=== PATIENT | male | born 1985 | race Caucasian/White ===

== ENCOUNTER 2022-06-30 12:41 | Emergency (ER) | payer OTHER ==
[~2022-06-30] VITALS: Ht 170.2 cm; Wt 104.3 kg
[2022-06-30] MEDS ORDERED: AMOX-430 PO (14:03)
--- NOTE | 2022-06-30 14:24 | NUR ---
Gave pt RX and d/c instructions, pt verbalized understanding.
== END 2022-06-30 14:35 | disposition home or self-care (01) ==
LOC: ER 12:41
DX: K64.4 Residual hemorrhoidal skin tags (principal); K61.0 Anal abscess
CPT/HCPCS: A4663

== ENCOUNTER 2023-04-05 13:18 | Emergency (ER) | payer OTHER ==
[~2023-04-05] VITALS: Ht 167.6 cm; Wt 97.5 kg
[~2023-04-05 13:18] MED LIST: AMOX-430 PO
[2023-04-05] MEDS ORDERED: IBUP-1957 PO (13:31)
[2023-04-05] MEDS ORDERED: BIMA2.5D5 EACHEYE (13:31)
[2023-04-05] MEDS ORDERED: ATOR20TA PO (13:31)
[2023-04-05] MEDS ORDERED: TRAM50TA2 PO (13:31)
[2023-04-05] MEDS ORDERED: CARV12.52 PO (13:31)
[2023-04-05] MEDS ORDERED: LEVO75TA7 PO (13:31)
[2023-04-05] MEDS ORDERED: AZIL1TAB2 PO (13:31)
[2023-04-05] MEDS ORDERED: BRIM5DRO3 EACHEYE (13:31)
[2023-04-05] MEDS ORDERED: EMPA10TA PO (13:31)
[2023-04-05] MEDS ORDERED: ESOM40CA PO (13:31)
[2023-04-05] MEDS ORDERED: DORZ10DR13 EACHEYE (13:31)
[2023-04-05 14:39] VITALS: BP 115/77; O2SAT 98
== END 2023-04-05 14:39 | disposition home or self-care (01) ==
LOC: ER 13:18
DX: T14.8XXA Other injury of unspecified body region, initial encounter (principal); R07.89 Other chest pain; Z79.899 Other long term (current) drug therapy; W18.39XA Other fall on same level, initial encounter; Y93.89 Activity, other specified; Y92.89 Other specified places as the place of occurrence of the external cause; Y99.8 Other external cause status
CPT/HCPCS: 71045; A4606; A4663